=== PATIENT | female | born 1955 | race Caucasian/White ===

== ENCOUNTER 2025-08-30 06:33 | Inpatient (IN) | payer MEDICARE, OTHER ==
[~2025-08-30] VITALS: Ht 154.9 cm; Wt 75.7 kg
[2025-08-30] MEDS ORDERED: dexaMETHasone SOD PHOSPHATE 2 ML ONE (06:57)
[2025-08-30] MEDS ORDERED: POLYMYXIN B SULFATE 500,000 UNITS ONE (06:57)
[2025-08-30] MEDS ORDERED: GENTAMICIN 80 MG/2 ML VIAL ONE (06:57)
[2025-08-30] MEDS ORDERED: LIDOCAINE 2%-EPI 1:100,000 30 ML VIAL ONE (06:57)
[2025-08-30] MEDS ORDERED: VANCOMYCIN 1 GM VIAL ONE (06:57)
[2025-08-30] MEDS ORDERED: CEFAZOLIN 1 GM ONE (06:57)
[2025-08-30] MEDS ORDERED: BUPIVACAINE 0.5 % PF 150 MG/30 ML VIAL ONE (06:57)
[2025-08-30] MEDS ORDERED: ANESTHESIA TRAY IN PYXIS 1 EA TRAY MC ONE (06:58)
[2025-08-30] MEDS ORDERED: SUGAMMADEX SODIUM 200 MG/2 ML VIAL IV ONE (07:14)
[2025-08-30] MEDS ORDERED: FENTANYL PF 100MCG/2ML AMPUL ONE (07:14)
[2025-08-30] MEDS ORDERED: FAMOTIDINE/PF INJ 20 MG/2 ML VIAL IV ONE (07:15)
[2025-08-30] MEDS ORDERED: OXYMETAZOLINE HCL NASAL SPRAY 30 ML BOTTLE NS ONE (07:15)
[2025-08-30] MEDS ORDERED: ROCURONIUM BROMIDE 50 MG/5 ML ONE (07:15)
[2025-08-30] MEDS: PIPERACILLIN /TAZOBACTAM 3.375 G in IV D5W 50 ML IV ONE (08:30)
[2025-08-30 12:52] VITALS: BP 134/78; TEMP 97.3; O2SAT 98
[2025-08-30] MEDS ORDERED: ONDANSETRON HCL/PF 4 MG/2 ML VIAL IVP PRN (13:00)
[2025-08-30] MEDS ORDERED: ACETAMINOPHEN 325 MG TABLET PO PRN (13:00)
[2025-08-30] MEDS: CHLORHEXIDINE GLUCONATE 15 ML UDC MM SCH (13:11)
[2025-08-30] MEDS: IV NS 0.9% 1,000 ML IV PRN (13:12)
[2025-08-30] MEDS: HYDROMORPHONE 1 MG/1 ML DISP.SYRIN IV PRN (15:10)
[2025-08-30] MEDS: ZOSYN IVPB 3.375 G in IV D5W 50ml IV SCH (15:15)
[2025-08-30] MEDS ORDERED: FENO134C PO (15:52)
[2025-08-30] MEDS ORDERED: LATA7.5D EACHEYE (15:52)
[2025-08-30] MEDS ORDERED: METO25TA4 PO (15:52)
[2025-08-30] MEDS ORDERED: ATOR20TA PO (15:52)
[2025-08-30] MEDS ORDERED: ASCO100031 PO (15:52)
[2025-08-30] MEDS ORDERED: DORZ10DR18 EACHEYE (15:52)
[2025-08-30] MEDS ORDERED: MIRABEGRON (15:52)
[2025-08-30] MEDS ORDERED: LEVO112T5 PO (15:52)
[2025-08-30] MEDS ORDERED: CHOL100043 PO (15:52)
[2025-08-30] MEDS ORDERED: LOSA50TA39 PO (15:52)
[2025-08-30] MEDS ORDERED: ASPI-1169 PO (15:52)
[2025-08-30 16:00] VITALS: BP 124/73; TEMP 97.5; O2SAT 95
[2025-08-30] MEDS ORDERED: MAGNESIUM HYDROXIDE 30 ML UDC PO PRN (17:00)
[2025-08-30] MEDS: MENTHOL/CETYLPYRD (CEPACOL) 1 LOZ LOZENGE PO PRN (17:19)
[2025-08-30] MEDS: ATORVASTATIN 10 MG TABLET PO SCH (18:16)
[2025-08-30 20:00] VITALS: BP 120/61; TEMP 207.9; TEMP 97.7; O2SAT 94
[2025-08-30] MEDS: VANCOMYCIN 1 GM in IV D5W 250ml IV SCH (20:29)
[2025-08-30] MEDS: METOPROLOL SUCCINATE 25 MG TAB.SR.24H PO SCH (22:28)
[2025-08-31 07:31] LABS: PLATELET COUNT (AUTO) 237 K/uL (150-450); RED BLOOD CELL COUNT(AUTO) 3.71 MIL/uL (4.0-5.2); RED CELL DISTRIBUTION WIDTH 13.6 % (11.5-15.0); WHITE BLOOD COUNT (AUTO) 10.0 K/uL (4.3-11.0)
[2025-08-31 08:13] LABS: CREATININE 1.1 mg/dL (0.6-1.3); PHOSPHORUS 3.5 mg/dL (2.5-4.9); SODIUM SERUM 141.0 mmol/L (136-145); UREA NITROGEN, BLOOD 25.0 mg/dL (7-18)
[2025-08-31] MEDS: LEVOTHYROXINE SODIUM 112 MCG TABLET PO SCH (08:22)
[2025-08-31] MEDS: CHOLECALCIFEROL 1,000 UNIT TABLET (VIT D3) PO SCH (08:23)
[2025-08-31] MEDS: ASCORBIC ACID 500 MG TABLET PO SCH (08:23)
[2025-08-31] MEDS: PANTOPRAZOLE 40 MG VIAL IV SCH (08:23)
[2025-08-31] MEDS: LOSARTAN POTASSIUM 50 MG TABLET PO SCH (08:23)
[2025-08-31 08:38] VITALS: BP 117/65; TEMP 97.7; O2SAT 94
[2025-08-31 08:42] LABS: CALCIUM, SERUM 8.7 mg/dL (8.5-10.1)
[2025-08-31] MEDS: DORZOLAMIDE OPTH 2% 10 ML BOTTLE EACHEYE SCH (10:20)
[2025-08-31] MEDS ORDERED: LATANOPROST EYE DROP 0.005% 2.5 ML BOTTLE EACHEYE SCH (22:00)
== END 2025-08-31 12:12 | disposition home or self-care (01) | DRG 142 ==
LOC: DS 06:33 → MED 12:07
PROVIDERS: ADMIT Nurse Practitioner Family; ATTEND Nurse Practitioner Family
PROC: 0NUR07Z Supplement Maxilla with Autologous Tissue Substitute, Open Approach (ICD-10-PCS; 2025-08-30)
PROC: 0N5R0ZZ Destruction of Maxilla, Open Approach (ICD-10-PCS; 2025-08-30)
PROC: 09UQ07Z Supplement Right Maxillary Sinus with Autologous Tissue Substitute, Open Approach (ICD-10-PCS; 2025-08-30)
PROC: 09UR07Z Supplement Left Maxillary Sinus with Autologous Tissue Substitute, Open Approach (ICD-10-PCS; 2025-08-30)
PROC: 0NSR04Z Reposition Maxilla with Internal Fixation Device, Open Approach (ICD-10-PCS; principal; 2025-08-30 07:30)
DX: S02.40DA Maxillary fracture, left side, initial encounter for closed fracture (principal); D16.4 Benign neoplasm of bones of skull and face; S02.40CA Maxillary fracture, right side, initial encounter for closed fracture; S02.609A Fracture of mandible, unspecified, initial encounter for closed fracture; I10 Essential (primary) hypertension; E78.5 Hyperlipidemia, unspecified; M27.2 Inflammatory conditions of jaws; X58.XXXA Exposure to other specified factors, initial encounter; Y92.9 Unspecified place or not applicable; D16.5 Benign neoplasm of lower jaw bone; Z82.49 Family history of ischemic heart disease and other diseases of the circulatory system; R73.03 Prediabetes; Z90.710 Acquired absence of both cervix and uterus; Z90.49 Acquired absence of other specified parts of digestive tract; Z98.890 Other specified postprocedural states
CPT/HCPCS: 36415; 80048-TC; 83735-TC; 84100-TC; 85025-TC; 88305-TC; 88311-TC; 88312-TC; A4223; A4338; C1713; G0378; J0690; J1100; J1171; J1308; J1580; J2405; J2470; J2543; J2704; J3010; J3373; J3490; J7030; J7042; J7050; J7060